=== PATIENT | male | born 1930 | race Caucasian/White ===

== ENCOUNTER 2018-01-11 11:33 | Observation (INO) ==
--- NOTE | 2018-01-11 11:52 | PDOC ---
Upper Extremity Problem HPI - General Chief Complaint: Upper Extremity Problem/Injury Stated Complaint: SWELLING LEFT ARM Date Seen by Provider: 01/11/18 Time Seen by Provider: 11:39 Source: POSITIVE: Patient (daughters and patient) Exam Limitations: POSITIVE: No limitations Nurse's Notes Reviewed & Considered: Yes - History of Present Illness Initial Comments: Patient sent into ED from [place] emergency department for left upper extremity swelling. patient had PICC line placed in left arm 6 days ago for IV antibiotic treatment. Patient reports pain in the arm and redness with the swelling since yesterday. Denies fevers. Denies CP. Denies SOB. Denies cough. - Patient Home Medications Home Medications: Home Medications Aspirin 81 mg PO DAILY tab 08/09/15 Atorvastatin Calcium 10 mg PO DAILY tab 08/09/15 Lisinopril 10 mg PO DAILY tab 08/09/15 Multivit-Min/FA/Lutein/Zeaxant [Icaps Mv Tablet] 1 tab PO BID tab 08/09/15 Budesonide/Formoterol Fumarate [SYMBICORT] 1 mcg INH BID 08/14/17 Gabapentin 300 mg PO BID 08/14/17 Omeprazole 20 mg PO DAILY 08/14/17 Furosemide 40 mg PO DAILY 01/11/18 Metoprolol Tartrate 25 mg PO BID 01/11/18 - Patient Allergies Allergies/Adverse Reactions: Allergies 3 Allergy/AdvReac Type Severity Reaction Status Date / Time Penicillins Allergy Intermediate HIVES Verified 12/30/17 11:57 Past Medical History - heen HEENT History: Macular Degeneration, Hard of Hearing Additional HEENT History: Dentures but doesn't use them Cardiovascular History: Hypertension, DVTs, Hyperlipidemia Additional Cardiovasular History: 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 PERIPHERAL EDEMA Respiratory History: COPD, Emphysema Gastrointestinal History: GERD Genitourinary History: Denies History Endocrine History: Denies History Musculoskeletal History: Arthritis, Back Pain, Osteoarthritis Prosthesis or Implant: No Neurological History: Denies History Additional Neurological History: PERIPHERAL NEUROPATHY Blood Disorders: Denies History Psychiatric History: Denies History History of Sexually Transmitted Diseases: No Cancer History: Skin History of MDRO: No History of Other Communicable Diseases: (chicken pox) In the Past 12 Months, Have Used or Abuse Any Substance: None Previous Surgical History: Yes Type / Date of Surgery: STENT/ APPY/ CTR/ LIPOMA EXCISED FROM RIGHT elbow/ Cataracts bilat/ Anesthesia Reactions: No Malignant Hyperthermia: No Significant Family History: Cancer, Hypertension ROS - Limitations ROS Limitations: No Limitations Constitution: DENIES: Chills, Fever Cardiovascular: DENIES: Chest Pain Respiratory: DENIES: Cough Non Productive, Cough Productive, Hurts To Breathe, Shortness Of Breath Neurological: REPORTS: Denies Neuro Symptoms Gastrointestinal: REPORTS: Denies GI Symptoms Endocrine: REPORTS: Denies Symptoms Musculoskeletal: REPORTS: Other (LUE pain and swelling) Genitourinary: REPORTS: Denies Symptoms ENT: REPORTS: Denies Symptoms Skin: REPORTS: Excessive Bruising. DENIES: Diaphoresis Lympathic: REPORTS: Excessive Bruising Immunologic: POSITIVE: Denies Symptoms Upper Extremity Problem Exam - General Appearance General Appearance: POSITIVE: Alert, Cooperative, Mild Distress - Upper Extremity Upper Extremity: POSITIVE: Normal ROM, Tenderness (Swelling of LUE with LUE PICC In place. Moderate eccymosis of LUE. Some associated errythema. No exudates.), Swelling Vascular: POSITIVE: Full Pulses, Equal Pulses - Skin Skin: POSITIVE: Warm (multiple areas of eccymosis), Erythema - Neuro / Psych Peripheral Neuro Exam: POSITIVE: Sensation Normal, Motor Normal Central Neuro Exam: POSITIVE: Oriented to Person, Oriented to Place, Oriented to Time, Normal Speech, Normal Cognition, Appropriate Mood, Appropriate Affect - HEENT HEENT: POSITIVE: Head Inspection Nml, Eyes Inspection Nml, Oral/Dental Inspect. Nml, Pharynx Inspect. Nml, PERRL, EOMI - Neck/Back Neck / Back: POSITIVE: Normal Inspection - Respiratory / CVS Respiratory / CVS: POSITIVE: No Respiratory Distress Peripheral Pulses: Radial (R): 2+, Radial (L): 2+ - Abdomen Abdomen: Soft: (All Quadrants), Normal Bowel Sounds: (All Quadrants), No Guarding: (All Quadrants), No Rebound: (All Quadrants) Upper Ext Problem Progress - Results Reviewed by me Xrays/CTs/US Reviewed by me: Yes Discussed with Radiologist: Yes Radiology Findings: Left basilic vein DVT associated with LUE PICC line Lab Results Reviewed by Me: Yes CBC and BMP: 01/11/18 12:10 01/11/18 12:10 Lab Results:: Laboratory Results 3 01/11/18 01/11/18 01/11/18 12:10 12:10 12:10 WBC 10.65 RBC 4.62 L Hgb 16.0 Hct 46.8 MCV 101.3 H MCH 34.6 H MCHC 34.2 RDW Std Deviation 54.1 H RDW Coeff of Soraya 14.7 H Plt Count 145 MPV 10.7 Immature Gran % (Auto) 0.3 Neut % (Auto) 72.8 Lymph % (Auto) 18.9 [place] % (Auto) 4.9 L Eos % (Auto) 2.8 Baso % (Auto) 0.3 Immature Gran # (Auto) 0.03 Neut # (Auto) 7.76 Lymph # (Auto) 2.01 [place] # (Auto) 0.52 Eos # (Auto) 0.30 Baso # (Auto) 0.03 WBC Morphology Comment Normal morphology Plt Morphology Comment Normal morphology RBC Morph Comment Normal morphology PT 10.0 INR 0.97 APTT 30.1 Sodium 142 Potassium 4.5 Chloride 109 Carbon Dioxide 26 Anion Gap 7 BUN 17 Creatinine 1.3 BUN/Creatinine Ratio 13.07 Glucose 96 Calculated Osmolality 295.0 H Calcium 9.1 - Patient's Progress Status: POSITIVE: Unchanged MDM / ED Course: Patient presents to the emergency department with left upper extremity swelling and associated PICC line. Obtained ultrasound of left upper extremity which shows partially occlusive DVT of left basilic vein. This is likely from the patient's PICC line. I subsequently discussed the case with Dr. Adames of orthopedics and he requests that the patient get IV antibiotics for another week yet. The patient is currently receiving IV daptomycin via the PICC line. I further discussed the case with Dr. Le of the hospitalist service who will accept the patient for admission to the hospital for further IV antibiotic therapy and treatment of his left upper extremity DVT. Patient was given 1mg/ kg subcutaneous Lovenox here in the emergency department. He will be started on further anticoagulant therapy upon admission. All results were discussed in length in detail with the patient and his family who accompanied him today. They express understanding of results including labs and ultrasound. And they were in agreement with plan of care. Patient was subsequently admitted to the hospitalist service in stable and unchanged condition. - Consult Consult (If Yes, Name of Consulting MD & Time Called): Yes (Dr. Adames) Consulting MD will see pt:: POSITIVE: [facility] Admit, Other (Recommended discussion of case with Hospitalist, Dr. Le. Case discussed with Dr. Le. He requested peripheral line be placed. He does not want coumadin given at this time. Will possibly admit patient for further IV antibiotics and anticoagulant therapy.) Counseled: POSITIVE: Patient, Family Patient Care Time - Estimated PCT Patient Care Time (In Minutes): 70 Vital Signs - VS Reviewed Vital Signs Reviewed: Yes Discharge Clinical Impression: Deep venous thrombosis, Left upper arm pain Discharge Disposition: Admit to Inpatient Condition: Stable Follow Up With: ASHLEY GEORGE [Primary Care Provider] - Care Transferred To: Dr. Le Date Decision to Admit to Inpatient: 01/11/18 Time Decision to Admit to Inpatient: 14:23
[2018-01-11] MEDS ORDERED: HEPARIN 500 UNIT/5 ML SYRINGE FOR CENTRAL LINE IVP ONE (12:00)
[2018-01-11 12:13] LABS: BASOPHILS # (AUTO) 0.03 10*3/UL; BASOPHILS % (AUTO) 0.3 % (0-1); EOSINOPHILS % (AUTO) 2.8 % (0-8); Hematocrit [HCT] 46.8 % (42.0-52.0); LYMPHOCYTES # (AUTO) 2.01 10*3/uL; MEAN CORPUSCULAR HEMOGLOBIN 34.6 PG (27-31); MEAN CORPUSCULAR HGB CONC 34.2 g/dL (33-37); MEAN CORPUSCULAR VOLUME 101.3 FL (80-90); MEAN PLATELET VOLUME 10.7 FL (7.4-12.2); MONOCYTES # (AUTO) 0.52 10*3/UL (0.3-0.8); MONOCYTES % (AUTO) 4.9 % (5-15); NEUTROPHILS # (AUTO) 7.76 10*3/UL; NEUTROPHILS % (AUTO) 72.8 % (50-80); RED BLOOD COUNT 4.62 10^6/uL (4.70-6.10)
[2018-01-11 12:19] LABS: PLATELET MORPHOLOGY COMMENT NORMAL MORPHOLOGY (NORM); RBC MORPHOLOGY COMMENT NORMAL MORPHOLOGY (NORM); WBC MORPHOLOGY COMMENT NORMAL MORPHOLOGY (NORM)
[2018-01-11 12:22] LABS: BLOOD UREA NITROGEN 17 mg/dL (7-22); BUN/CREATININE RATIO 13.07 (6-20)
--- NOTE | 2018-01-11 13:32 | DI ---
US Up/Low Ext Veins U/L or Ltd 01/11/2018 11:50 AM History: [facility] DI ^left arm swelling ^left upper extremity Comparison: Ultrasound-guided venous access 01/05/2018. Procedure: Left upper extremity mendoza scale and color Doppler ultrasound. Findings: A PICC line extends from the mid brachial vein centrally. There is normal flow, compressibi lity (when able), and respiratory variation from the level of the jugular vein through the subclavian and axillary veins. There is incompletely occlusive thrombus in the mid and proximal brachial vein. The distal brachial vein is patent with normal flow and compressibility without attenuated respirator y variation. The superficial veins are patent with normal flow, compressibility, and respiratory vari ation. Impression: A PICC line extends from the mid brachial vein centrally with incompletely occlusive deep vein thrombosis of the mid and proximal brachial vein. These findings were discussed telephonically with Dr. Sellers of the Emergency Department at 1330 h rs on the day of the exam.
[2018-01-11] MEDS ORDERED: ENOXAPARIN SODIUM 120 MG/0.8 ML SYRINGE SUBCUT ONE (14:02)
[2018-01-11] MEDS ORDERED: ACETAMINOPHEN 325 MG TABLET PO PRN (15:33)
--- NOTE | 2018-01-11 15:41 | PDOC ---
HPI - History of Present Illness Date of Service: 01/11/18 Time of Service: 15:00 Chief Complaint: Left arm swelling and pain that started last night. History of Present Illness: This is a 87 years old male with medical history significant for history of hypertension, hypercholesterolemia, history of previous stent insertion and history of right elbow bursitis back in July of this year who needed I&D and then had delayed closure. Then he developed A sinus tract at the elbow 2 months after that he was treated with antibiotics and then he needed surgery and was done a week ago by Dr. Adames. Dr. Adames did speak with infectious disease as he was consented about possible osteomyelitis and he was put on daptomycin supposedly for 2 weeks and then switched to Keflex. He was getting his daptomycin infusion in [place]. They could not withdraw blood on Thursday. Last time he had daptomycin was yesterday. He came in because of swelling and pain that developed in the left arm. In the ER he had an ultrasound which showed upper extremity DVT in the brachial vein. And patient was admitted for observation. He think the swelling is somewhat less compared to earlier on the pain is also less. Past Medical History Medical History: 1. History of coronary artery disease with previous 2 stents 12 years ago. 2. Hypertension. 3. Hypercholesterolemia. 4. Macular degeneration. 5. History of bursitis back in July of this year Surgical History: 1. I&D of bursitis secondary to staph infection back in July of this year. With delayed closure. 2. Recent surgery on right elbow for a sinus tract that developed 2 months after the first surgery. 3. Appendectomy. 4. Carpal tunnel release Family History: Reviewed an Not Pertinent Past Social History: Lives in [place], smokes 1 pack a day since age 14, doesn't drink, no drugs. Tobacco Use: Current Every Day Smoker In the Past 12 Months, Have Used or Abuse Any of the Following Substance: None Alcohol Use: None Medication / Allergies Home Medications: Home Medications 3 Medication Instructions Recorded Confirmed Type Aspirin 81 mg PO DAILY tab 08/09/15 01/11/18 History Atorvastatin Calcium 10 mg PO DAILY tab 08/09/15 01/11/18 History Lisinopril 10 mg PO DAILY tab 08/09/15 01/11/18 History Multivit-Min/FA/Lutein/Zeaxant 1 tab PO BID tab 08/09/15 01/11/18 History [Icaps Mv Tablet] Budesonide/Formoterol Fumarate 1 mcg INH BID 08/14/17 01/11/18 History [SYMBICORT] Gabapentin 300 mg PO BID 08/14/17 01/11/18 History Omeprazole 20 mg PO DAILY 08/14/17 01/11/18 History Furosemide 40 mg PO DAILY 01/11/18 01/11/18 History Metoprolol Tartrate 25 mg PO BID 01/11/18 01/11/18 History Allergies/Adverse Reactions: Allergies 3 Allergy/AdvReac Type Severity Reaction Status Date / Time Penicillins Allergy Intermediate HIVES Verified 01/11/18 15:12 Review of Systems - Review of Systems All Systems: Reviewed & No Additional Complaints Except as Stated Exam - Vitals Vital Signs: Vital Signs Temperature 98.1 F Temperature Source Temporal Artery Scan Pulse Rate [Pulse Oximeter 73 Right] Respiratory Rate 23 Blood Pressure [Left Arm] 164/99 Pulse Ox 86 Oxygen Delivery Method Room Air Height 6 ft 1 in Weight 262 lb 3.2 oz - General General Appearance: No Acute Distress, Cooperative - Head Head Exam: Normal Inspection - Eye Eye Exam: POSITIVE: Normal Appearance - ENT ENT Exam: POSITIVE: Normal Exam - Neck Neck Exam: Normal Inspection - Respiratory Additional Respiratory Exam Details: Decreased air entry otherwise clear - Cardiovascular Cardiovascular Exam: POSITIVE: RRR - GI/Abdominal GI/Abdominal Exam: POSITIVE: Normal Bowel Sounds, Non Tender, Non Distended, Soft, No Organomegaly - Rectal Rectal Exam: POSITIVE: Deferred - External Exam: POSITIVE: Deferred Exam: POSITIVE: Deferred - Extremities Additional Extremities Exam Details: Bilateral leg edema noted. In addition there is swelling in the left arm. Right arm in a sling. dressing applied to the right elbow. - Back Back Exam: POSITIVE: Normal Inspection - Neurological Neurological Exam: POSITIVE: Alert, Oriented x 3, CN II-XII Intact, No Facial Droop, Speech Intact / Clear - Psychiatric Psychiatric Exam: POSITIVE: Normal Affect Results - Labs CBC and BMP: 01/11/18 12:10 01/11/18 12:10 - Imaging Status: Report Reviewed by Me (US PICC line extends from the mid brachial vein centrally with incompletely occlusive deep vein thrombosis of the mid and proximal brachial vein.) Assessment and Plan - Patient Problems (1) Deep venous thrombosis Current Visit: Yes Status: Acute Comment: I discussed with infectious disease we can switched him to by mouth medications so will stop the daptomycin. I think will give him another dose of Lovenox and then will DC the PICC line tomorrow. Will put him on Lovenox for now. Depending on how things look tomorrow then will decide about what anticoagulant to continue after that. Code(s): I82.409 - Acute embolism and thrombosis of unspecified deep veins of unspecified lower extremity (2) History of coronary artery disease Current Visit: Yes Status: Acute Comment: Continue ELPIDIO inhibitor, metoprolol and aspirin. Code(s): Z86.79 - Personal history of other diseases of the circulatory system (3) Leg edema Current Visit: Yes Status: Acute Comment: He has edema in both legs he is supposed to be on furosemide but he's not taking it last time he took it may be a week or 2 weeks ago he said we'll put him back on it. Code(s): R60.0 - Localized edema (4) Hypercholesterolemia Current Visit: Yes Status: Acute Comment: Continue Lipitor Code(s): E78.00 - Pure hypercholesterolemia, unspecified
[2018-01-11] MEDS ORDERED: DOCUSATE 100 MG CAPSULE PO PRN (15:59)
[2018-01-11] MEDS ORDERED: LIDOCAINE W/ SODIUM BICARB 0.5 ML SYR SUBD PRN (15:59)
[2018-01-11] MEDS ORDERED: ONDANSETRON 4 MG/2 ML VIAL IVP PRN (15:59)
[2018-01-11] MEDS ORDERED: CALCIUM CARBONATE 500 MG (TUMS) CHEWABLE TABLET PO PRN (15:59)
[2018-01-11] MEDS ORDERED: FORMOTEROL FUMARATE INH SCH (19:00)
[2018-01-11] MEDS ORDERED: BUDESONIDE INH SCH (19:00)
[2018-01-11] MEDS: DOXYCYCLINE HYCLATE 100 MG CAPSULE PO SCH (21:00)
[2018-01-11] MEDS: Metoprolol TARTRATE Tab 50 MG TAB PO SCH (21:00)
[2018-01-11] MEDS: GABAPENTIN 300 MG CAPSULE PO SCH (21:00)
[2018-01-11] MEDS: NICOTINE 21 MG /DAY PATCH TRANSDERM SCH (21:11)
[2018-01-12] MEDS ORDERED: ENOXAPARIN SODIUM 120 MG/0.8 ML SYRINGE SUBCUT SCH (02:00)
[2018-01-12 06:40] VITALS: BP 128/77; TEMP 97.4; O2SAT 90
[2018-01-12] MEDS ORDERED: FORMOTEROL FUMARATE INH SCH (07:00)
[2018-01-12] MEDS ORDERED: BUDESONIDE INH SCH (07:00)
[2018-01-12 08:03] VITALS: RESP 20
[2018-01-12] MEDS: GABAPENTIN 300 MG CAPSULE PO SCH (08:52)
[2018-01-12] MEDS: Metoprolol TARTRATE Tab 50 MG TAB PO SCH (08:52)
[2018-01-12] MEDS: DOXYCYCLINE HYCLATE 100 MG CAPSULE PO SCH (08:53)
[2018-01-12] MEDS: NICOTINE 21 MG /DAY PATCH TRANSDERM SCH (08:54)
[2018-01-12] MEDS ORDERED: Multivitamin Tab 1 TAB PO SCH (09:00)
[2018-01-12] MEDS ORDERED: ASPIRIN 81 MG (BABY) CHEWABLE TABLET PO SCH (09:00)
[2018-01-12] MEDS ORDERED: LISINOPRIL 10 MG TABLET PO SCH (09:00)
[2018-01-12] MEDS ORDERED: OMEPRAZOLE 20 MG CAPSULE PO SCH (09:00)
[2018-01-12] MEDS ORDERED: FUROSEMIDE 40 MG TABLET PO SCH (09:00)
[2018-01-12] MEDS ORDERED: Rivaroxaban Tab 10 MG TAB PO ONE (10:19)
--- NOTE | 2018-01-12 10:28 | DCSUMMARY ---
Hospitalization Summary Admit Date: 01/11/2018 Discharge Date: 01/12/18 Primary Diagnosis:: left upper extremity DVT, provoked Hospital Course: This very pleasant 87-year-old male who has had some issues with a right olecranon bursitis and infection there. He had a sinus tract that was recently closed. He has been on antibiotics for this and had a PICC line for IV antibiotics. He developed significant swelling in the left upper extremity and came in for evaluation was found to have a left basilic vein DVT, acute, provoked. Patient was admitted, placed on Lovenox, and it was determined, by my partner Dr. Le, and discussion with infectious disease, that the patient could go to oral antibiotics of doxycycline for the next week and then discontinue antibiotics. There was no evidence of any infection or osteomyelitis with the sinus tract. The patient and I spoke in depth regarding Coumadin versus Xarelto versus Eliquis, including all risks and benefits, risks being bleeding complications and possible pitfalls of not being able to reverse bleeding with antidotes, and benefits of treatment of blood clot, lack of drug interactions, and ease of therapy in terms of lab monitoring. The patient opted to go for Xarelto. I think this makes the most sense given his age and borderline kidney function. He has no complains of chest pain, shortness breath, nausea or vomiting today. He states that his left arm pain has significantly reduced. He would like to go home. Assessment and Plan: 1. As per discharge assessments noted 2. Disposition: Patient is discharged home. 3. Condition on discharge, stable and improved. 4. Diet: regular diet 5. Activities: resume normal activities and as per restrictions via Dr. Adames for right upper extremity 6. Follow-Up: 1. Dr. Blood in one week 2. Dr. Adames at next available in [place] 7. Medications at the Time of Discharge: Home Medications 3 Medication Instructions Recorded Confirmed Type Aspirin 81 mg PO DAILY tab 08/09/15 01/11/18 History Atorvastatin Calcium 10 mg PO DAILY tab 08/09/15 01/11/18 History Lisinopril 10 mg PO DAILY tab 08/09/15 01/11/18 History Multivit-Min/FA/Lutein/Zeaxant 1 tab PO BID tab 08/09/15 01/11/18 History [Icaps Mv Tablet] Budesonide/Formoterol Fumarate 1 mcg INH BID 08/14/17 01/11/18 History [SYMBICORT] Gabapentin 300 mg PO BID 08/14/17 01/11/18 History Omeprazole 20 mg PO DAILY 08/14/17 01/11/18 History Furosemide 40 mg PO DAILY 01/11/18 01/11/18 History Metoprolol Tartrate 25 mg PO BID 01/11/18 01/11/18 History Doxycycline Hyclate [Vibramycin] 100 mg PO BID #14 cap 01/12/18 Rx Rivaroxaban [Xarelto] 15 mg PO BID #42 tab 01/12/18 Rx Rivaroxaban [Xarelto] 20 mg PO DAILY #90 tab 01/12/18 Rx Exam - Vitals Vital Signs: Vital Signs Temperature 97.4 F Temperature Source Temporal Artery Scan Pulse Rate [Pulse Oximeter] 65 Pulse Rate [Pulse Oximeter 73 Right] Pulse Rate 68 Respiratory Rate 20 Blood Pressure [Left Arm] 128/77 Blood Pressure 169/105 Pulse Ox 90 Oxygen Flow Rate 1 Oxygen Delivery Method Room Air Height 6 ft 1 in Weight 262 lb 3.2 oz - General General Appearance: No Acute Distress, Cooperative - Head Head Exam: Normal Inspection, Normocephalic, Atraumatic - Eye Eye Exam: POSITIVE: No Scleral Icterus - ENT ENT Exam: POSITIVE: Mucous Membranes Moist - Respiratory Respiratory Exam: POSITIVE: Clear to Auscultation - Bilaterally, Breathing Non Labored - Cardiovascular Cardiovascular Exam: POSITIVE: RRR, No Murmur, No Clicks, No Gallops, No Rubs, No JVD - GI/Abdominal GI/Abdominal Exam: POSITIVE: Normal Bowel Sounds, Non Tender, Non Distended, Soft - Extremities Extremities Exam: POSITIVE: +2 Edema (In the lower extremities bilaterally. 3+ edema in the left upper extremity but good radial pulses, no evidence of vascular compromise.) - Neurological Neurological Exam: POSITIVE: Alert, Oriented x 3, No Facial Droop, Speech Intact / Clear, Moves All Extremities Equally - Psychiatric Psychiatric Exam: POSITIVE: Normal Affect, Normal Mood Data Peritnent Studies: Laboratory Results 01/11/18 01/11/18 01/11/18 Range/Units 12:10 12:10 12:10 WBC 10.65 (4.8-10.8) 10^3/uL RBC 4.62 L (4.70-6.10) 10^6/uL Hgb 16.0 (14.0-18.0) g/dL Hct 46.8 (42.0-52.0) % MCV 101.3 H (80-90) FL MCH 34.6 H (27-31) PG MCHC 34.2 (33-37) g/dL RDW Std Deviation 54.1 H (39-50) fL RDW Coeff of [place] 14.7 H (11.5-14.5) % Plt Count 145 (140-350) 10*3/uL MPV 10.7 (7.4-12.2) FL Immature Gran % (Auto) 0.3 (0-5) % Neut % (Auto) 72.8 (50-80) % Lymph % (Auto) 18.9 (10-50) % [place] % (Auto) 4.9 L (5-15) % Eos % (Auto) 2.8 (0-8) % Baso % (Auto) 0.3 (0-1) % Immature Gran # (Auto) 0.03 10*3/UL Neut # (Auto) 7.76 10*3/UL Lymph # (Auto) 2.01 10*3/uL [place] # (Auto) 0.52 (0.3-0.8) 10*3/UL Eos # (Auto) 0.30 10*3/UL Baso # (Auto) 0.03 10*3/UL WBC Morphology Comment Normal morphology (NORM) Plt Morphology Comment Normal morphology (NORM) RBC Morph Comment Normal morphology (NORM) PT 10.0 (9.7-11.4) secs INR 0.97 (0.00-5.90) N/A APTT 30.1 (22.6-36.2) SECS Sodium 142 (135-145) meq/L Potassium 4.5 (3.8-5.2) meq/L Chloride 109 (98-112) meq/L Carbon Dioxide 26 (23-33) meq/L Anion Gap 7 (5-20) BUN 17 (7-22) mg/dL Creatinine 1.3 (0.70-1.50) mg/dL BUN/Creatinine Ratio 13.07 (6-20) Glucose 96 (78-110) mg/dL Calculated Osmolality 295.0 H (267-292) mOsm/kg Calcium 9.1 (8.7-10.7) mg/dL Procedures: [address] [facility] [place] [address] PH: DD: [phone] FAX: [phone] ~DIAGNOSTIC IMAGING REPORT~ Patient: LY HERNANDEZ : 1930 Sex: M Age: 87 Exam Name: US Up/Low Ext Veins U/L or Ltd Exam Date: 01/11/18 Report # : [id number] CPT Code: 14977 EMR/MR #: [id number] Ordering: Juice Sellers Admiting: Primary: ASHLEY GEORGE MD. Attending: Signed US Up/Low Ext Veins U/L or Ltd 01/11/2018 11:50 AM History: [facility] DI ^left arm swelling ^left upper extremity Comparison: Ultrasound-guided venous access 01/05/2018. Procedure: Left upper extremity mendoza scale and color Doppler ultrasound. Findings: A PICC line extends from the mid brachial vein centrally. There is normal flow, compressibility (when able), and respiratory variation from the level of the jugular vein through the subclavian and axillary veins. There is incompletely occlusive thrombus in the mid and proximal brachial vein. The distal brachial vein is patent with normal flow and compressibility without attenuated respiratory variation. The superficial veins are patent with normal flow, compressibility, and respiratory variation. Impression: A PICC line extends from the mid brachial vein centrally with incompletely occlusive deep vein thrombosis of the mid and proximal brachial vein. These findings were discussed telephonically with Dr. Sellers of the Emergency Department at 1330 hrs on the day of the exam. Dictated By: 01/11/18 1303 CATHERINE GRIMES MD. Signed By: 01/11/18 1332 CATHERINE GRIMES MD. Patient Problems - Patient Problem List (1) Deep venous thrombosis Current Visit: Yes Status: Acute Code(s): I82.409 - Acute embolism and thrombosis of unspecified deep veins of unspecified lower extremity Qualifiers: DVT location: upper extremity Affected thrombotic vein of extremity: brachial Chronicity: acute Laterality: left Qualified Code(s): I82.622 - Acute embolism and thrombosis of deep veins of left upper extremity Category: Medical (2) History of coronary artery disease Current Visit: Yes Status: Acute Code(s): Z86.79 - Personal history of other diseases of the circulatory system Category: Medical (3) Leg edema Current Visit: Yes Status: Acute Code(s): R60.0 - Localized edema Category : Medical (4) Hypercholesterolemia Current Visit: Yes Status: Acute Code(s): E78.00 - Pure hypercholesterolemia , unspecified Category: Medical (5) Olecranon bursitis of right elbow Current Visit: Yes Status: Acute Code(s): M70.21 - Olecranon bursitis, right elbow Category: Medical
[2018-01-12] MEDS ORDERED: ATORVASTATIN 10 MG TABLET PO SCH (21:00)
== END 2018-01-12 11:05 | disposition home or self-care (01) ==
LOC: MED/SURG 11:33 → ER 11:33
PROVIDERS: ADMIT Internal Medicine; ATTEND Internal Medicine

== ENCOUNTER 2018-07-09 09:10 | Inpatient (IN) ==
[2018-07-09] MEDS ORDERED: MORPHINE SULFATE 2 MG/1 ML IVP ONE (09:14)
[2018-07-09] MEDS ORDERED: FUROSEMIDE 10 MG/1 ML - 4 ML IVP ONE (09:14)
[2018-07-09] MEDS ORDERED: Sodium Chloride 0.9% 1,000 ML PRIMARY IV ONE (09:14)
[2018-07-09] MEDS ORDERED: ONDANSETRON 4 MG/2 ML VIAL IVP ONE (09:14)
[2018-07-09] MEDS ORDERED: IPRATROPIUM/ALBUTEROL SULFATE 3 ML NEB NEB ONE (09:15)
--- NOTE | 2018-07-09 09:17 | EKG ---
[address] [place] [address] Measurements Intervals [place] Rate: 83 P: -9 ME: 205 QRS: -44 QRSD: 163 T: -1 QT: 414 QTc: 454 Interpretive Statements SINUS RHYTHM WITH FREQUENT VENTRICULAR PREMATURE COMPLEXES WITH OCCASIONAL SUPRAVENTRICULAR PREMATURE COMPLEXES POSSIBLE LEFT ATRIAL ENLARGEMENT [-0.1mV P WAVE IN V1/V2] RIGHT BUNDLE BRANCH BLOCK [120+ ms QRS DURATION, UPRIGHT V1, 40+ ms S IN I/aVL/V4/V5/V6] POSSIBLE SEPTAL MYOCARDIAL INFARCTION [30 ms Q WAVE IN V1/V2], PROBABLY OLD INFERIOR MYOCARDIAL INFARCTION [40+ ms Q WAVE AND/OR ST/T ABNORMALITY IN II/aVF], OF INDETERMINATE AGE No previous ECG available for comparison Electronically Signed On 07-09-18 11:07:31 MDT by Gus Flood MD [email or web address]
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
[2018-07-09 09:30] LABS: BASOPHILS # (AUTO) 0.03 10*3/UL; BASOPHILS % (AUTO) 0.2 % (0-1); EOSINOPHILS # (AUTO) 0.25 10*3/UL; EOSINOPHILS % (AUTO) 1.6 % (0-8); Hematocrit [HCT] 47.7 % (42.0-52.0); LYMPHOCYTES # (AUTO) 2.45 10*3/uL; MEAN CORPUSCULAR HEMOGLOBIN 33.5 PG (27-31); MEAN CORPUSCULAR HGB CONC 33.5 g/dL (33-37); MEAN PLATELET VOLUME 11.5 FL (7.4-12.2); MONOCYTES # (AUTO) 0.89 10*3/UL (0.3-0.8); MONOCYTES % (AUTO) 5.8 % (5-15); NEUTROPHILS # (AUTO) 11.55 10*3/UL; RED BLOOD COUNT 4.77 10^6/uL (4.70-6.10)
[2018-07-09 09:31] LABS: PLATELET MORPHOLOGY COMMENT NORMAL MORPHOLOGY (NORM); RBC MORPHOLOGY COMMENT NORMAL MORPHOLOGY (NORM); WBC MORPHOLOGY COMMENT NORMAL MORPHOLOGY (NORM)
[2018-07-09 09:32] LABS: VENOUS PCO2 34.5 mmHg (45-55); VENOUS PH 7.317 (7.32-7.42)
[2018-07-09 09:47] LABS: BLOOD UREA NITROGEN 22 mg/dL (7-22); BUN/CREATININE RATIO 15.71 (6-20); SERUM ALBUMIN 3.7 g/dL (3.5-4.8)
--- NOTE | 2018-07-09 10:59 | DI ---
CT CTA Chest Non-Coronary WWO 07/09/2018 9:26 AM History[place] [facility] [place] Comparison: None. Procedure: CT angiography of the pulmonary arteries was performed after the administration of 65 mL o f Ultravist 370 intravenous contrast. Findings: There is normal opacification of the pulmonary arteries with no evidence of filling defect. Evaluation of the lungs demonstrates diffuse subpleural groundglass attenuation and reticular opacit ies, most conspicuous in the lower lobes where there is mild bilateral bronchiectasis. No honeycombin g is present. There is no dense consolidation, pneumothorax, or pleural effusion. No suspicious pulmo nary nodules are noted. The airways are patent with no endobronchial lesion. There are shotty mediastinal and right hilar lymph nodes. The aorta and branch vessels demonstrate no rmal course and caliber. The right and left main pulmonary arteries are dilated. Heart size is within normal limits with no pericardial effusion. The thyroid exhibits normal CT morphology. The visualized upper abdominal structures are unremarkable. The osseous structures are notable for severe acromioclavicular and glenohumeral joint osteoarthritis . There is no evidence of acute or healing rib fractures. Impression: 1. No main or segmental pulmonary embolism. 2. Constellation of findings concerning for interstitial lung disease with a nonspecific pattern favo ring nonspecific interstitial pneumonia. 3. The main pulmonary artery is dilated, a finding associated with pulmonary artery hypertension.
[2018-07-09] MEDS ORDERED: cefTRIAXone Inj 2 GM in Sodium Chloride 0.9% 100 ML IV ONE (11:15)
[2018-07-09 11:36] LABS: BILIRUBIN,URINE NEGATIVE (NEG); CLARITY,URINE CLEAR (CLEAR); COLOR,URINE YELLOW (Y); GLUCOSE, URINE (UA) NEGATIVE (NEG); OCCULT BLOOD,URINE NEGATIVE (NEG); PROTEIN,URINE NEGATIVE (NEG); UROBILINOGEN,URINE 0.2 EU/dL (0.2)
--- NOTE | 2018-07-09 11:39 | DI ---
US Veins, UE/LE Bilat 07/09/2018 9:26 AM History: [facility] – [place] DI ^swelling BLE/SOB Comparison: None. Procedure: Bilateral lower extremity Doppler ultrasound. Findings: There is normal flow, compressibility, and respiratory variation from the level of the comm on femoral vein to the popliteal vein bilaterally. There is normal augmentation of flow. Additionally , the deep veins below the knee that could be imaged were evaluated without evidence of thrombosis, t lynsey sensitivity is much lower in the evaluation of vessels below the knee. Impression: No sonographic evidence of deep vein thrombosis.
--- NOTE | 2018-07-09 11:41 | DI ---
US Veins, UE/LE [employer] 07/09/2018 9:26 AM History: [facility] [place] DI ^Swelling LUE/sob Comparison: None. Procedure: Left upper extremity mendoza scale and color Doppler ultrasound. Findings: There is normal flow, compressibility (when able), and respiratory variation from the level of the jugular vein through the subclavian, axillary, and brachial veins of the left upper extremity . There is normal venous augmentation. The superficial veins, to include the basilic and cephalic vei ns, are patent with normal flow, compressibility, and respiratory variation. Impression: No sonographic evidence of deep vein thrombosis.
[2018-07-09] MEDS ORDERED: LORazepam 2 MG/1 ML VIAL IVP ONE (11:51)
[2018-07-09 12:04] LABS: URINE SAMPLE TYPE CLEAN CATCH URINE
[2018-07-09] MEDS ORDERED: ONDANSETRON 4 MG/2 ML VIAL IVP PRN (14:19)
[2018-07-09] MEDS ORDERED: LIDOCAINE W/ SODIUM BICARB 0.5 ML SYR SUBD PRN (14:19)
[2018-07-09] MEDS ORDERED: ALBUTEROL SULFATE 2.5 MG/3 ML NEB PRN (14:19)
[2018-07-09] MEDS: IPRATROPIUM/ALBUTEROL SULFATE 3 ML NEB NEB SCH ×2 (15:33→20:04)
[2018-07-09] MEDS ORDERED: FUROSEMIDE 40 MG TABLET PO ONE (16:21)
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
[2018-07-09] MEDS: Metoprolol TARTRATE Tab 50 MG TAB PO SCH (21:21)
[2018-07-10 05:21] LABS: BASOPHILS # (AUTO) 0.02 10*3/UL; BASOPHILS % (AUTO) 0.2 % (0-1); EOSINOPHILS % (AUTO) 2.4 % (0-8); Hemoglobin [HGB] 14.2 g/dL (14.0-18.0); LYMPHOCYTES # (AUTO) 2.02 10*3/uL; MEAN CORPUSCULAR HEMOGLOBIN 33.5 PG (27-31); MEAN CORPUSCULAR VOLUME 101.4 FL (80-90); MEAN PLATELET VOLUME 11.2 FL (7.4-12.2); MONOCYTES # (AUTO) 0.91 10*3/UL (0.3-0.8); MONOCYTES % (AUTO) 7.2 % (5-15); NEUTROPHILS # (AUTO) 9.33 10*3/UL; RED BLOOD COUNT 4.24 10^6/uL (4.70-6.10)
[2018-07-10 05:32] LABS: PLATELET MORPHOLOGY COMMENT NORMAL MORPHOLOGY (NORM); RBC MORPHOLOGY COMMENT NORMAL MORPHOLOGY (NORM); WBC MORPHOLOGY COMMENT NORMAL MORPHOLOGY (NORM)
[2018-07-10 05:36] LABS: BLOOD UREA NITROGEN 34 mg/dL (7-22); BUN/CREATININE RATIO 18.88 (6-20)
[2018-07-10] MEDS ORDERED: FUROSEMIDE 40 MG TABLET PO SCH (07:00)
[2018-07-10] MEDS: IPRATROPIUM/ALBUTEROL SULFATE 3 ML NEB NEB SCH ×4 (07:06→19:44)
[2018-07-10] MEDS ORDERED: LISINOPRIL 10 MG TABLET PO SCH (09:00)
[2018-07-10] MEDS ORDERED: predniSONE Tab 20 MG TAB PO SCH (09:00)
[2018-07-10] MEDS ORDERED: LISINOPRIL 20 MG TABLET PO SCH (09:00)
[2018-07-10] MEDS ORDERED: POTASSIUM CHLORIDE 20 MEQ TAB PO SCH (09:00)
[2018-07-10] MEDS: Metoprolol TARTRATE Tab 50 MG TAB PO SCH ×2 (09:15→21:56)
[2018-07-10] MEDS: ATORVASTATIN 10 MG TABLET PO SCH (09:15)
[2018-07-10] MEDS: Multivitamin Tab 1 TAB PO SCH ×2 (09:17→21:56)
[2018-07-10] MEDS: ASPIRIN 81 MG (BABY) CHEWABLE TABLET PO SCH (09:18)
[2018-07-10] MEDS: OMEPRAZOLE 20 MG CAPSULE PO SCH (09:18)
[2018-07-10] MEDS: ENOXAPARIN SODIUM 40 MG/0.4 ML SYRINGE SUBCUT SCH (09:19)
[2018-07-10] MEDS: Sodium Chloride 0.9% 1,000 ML PRIMARY IV SCH (10:53)
--- NOTE | 2018-07-10 11:35 | PDOC(PROG) ---
Date of Service: 07/10/18 Time of Service: 11:32 Interval History: No complaints of chest pain, shortness breath, nausea or vomiting. Left arm still swollen, hot, tender. Still complains of drainage from right elbow which has not changed and is chronic in nature. I do note that there is a culture pending on the right elbow drainage. Urinating well Objective : Data - Labs CBC and BMP: 07/10/18 04:50 07/10/18 04:50 Objective : Exam - General General Appearance: No Acute Distress, Cooperative Additional General Exam Details: Vital Signs - Last Taken Temperature 97 F 07/10/18 09:00 Pulse Rate 69 07/10/18 09:00 Respiratory Rate 20 07/10/18 09:00 Blood Pressure 165/73 07/10/18 09:00 Pulse Ox 92 07/10/18 09:00 - Eye Eye Exam: No Scleral Icterus - ENT ENT Exam: Mucous Membranes Moist - Neck Neck Exam: JVP is not Raised - Respiratory Respiratory Exam: Breathing Non Labored, Coarse Breath Sounds - Cardiovascular Cardiovascular Exam: RRR, No Murmur, No Clicks, No Gallops, No Rubs, No JVD - GI/Abdominal GI/Abdominal Exam: Normal Bowel Sounds, Non Tender, Non Distended, Soft - Extremities Extremities Exam: No Clubbing Present, No Cyanosis Present, +2 Edema - Neurological Neurological Exam: Alert, Oriented x 3, No Facial Droop, Speech Intact / Clear, Moves All Extremities Equally - Integumentary Additional Integumentary Exam Details: Left arm has slightly less edema, tender to touch, red. Right elbow has minimal yellowish colored discharge, very minimal with Band-Aid in place. Assessment and Plan - Patient Problems (1) Left arm cellulitis Current Visit: Yes Status: Acute Code(s): L03.114 - Cellulitis of left upper limb (2) Coronary artery disease Current Visit: Yes Status: Acute Code(s): I25.10 - Atherosclerotic heart disease of [place] coronary artery without angina pectoris Qualifiers: Coronary Disease-Associated Artery/Lesion type: [place] artery [place] vs. transplanted heart: [place] heart Associated angina: without angina Qualified Code(s): I25.10 - Atherosclerotic heart disease of [place] coronary artery without angina pectoris (3) History of DVT (deep vein thrombosis) Current Visit: Yes Status: Acute Code(s): Z86.718 - Personal history of other venous thrombosis and embolism (4) Interstitial pneumonitis Current Visit: Yes Status: Acute Code(s): J84.89 - Other specified interstitial pulmonary diseases (5) Hypercholesterolemia Current Visit: No Status: Acute Code(s): E78.00 - Pure hypercholesterolemia, unspecified (6) Chronic silicosis Current Visit: Yes Status: Acute Code(s): J62.8 - Pneumoconiosis due to other dust containing silica (7) Pulmonary hypertension Current Visit: Yes Status: Acute Code(s): I27.20 - Pulmonary hypertension, unspecified (8) COPD (chronic obstructive pulmonary disease) Current Visit: Yes Status: Acute Code(s): J44.9 - Chronic obstructive pulmonary disease, unspecified Qualifiers: COPD type: emphysema Emphysema type: panlobular Qualified Code(s): J43.1 - Panlobular emphysema - Assessment / Plan Additional Assessment/Plan Details: did not respond well to lasix and ACEI, so stop could also be getting endotoxins if this is Beta hemolytic strep, so add clinda for toxic blocking effects labs in AM not sure what to make of gram stain on right elbow--will see if there is growth, as this chronically drains and the family is not reporting worsened drainage and neither is the patient give fluids today with increase in creatinine.
[2018-07-10] MEDS: Clindamycin 900mg (Premix) 900 MG/50 ML BAG IV SCH ×2 (11:51→18:45)
[2018-07-10] MEDS: cefTRIAXone Inj 2 GM in Sodium Chloride 0.9% 100 ML IV SCH (12:38)
[2018-07-11] MEDS: Sodium Chloride 0.9% 1,000 ML PRIMARY IV SCH ×2 (01:29→09:58)
[2018-07-11] MEDS: Clindamycin 900mg (Premix) 900 MG/50 ML BAG IV SCH ×3 (01:30→18:42)
[2018-07-11 04:30] LABS: BASOPHILS # (AUTO) 0.03 10*3/UL; BASOPHILS % (AUTO) 0.3 % (0-1); EOSINOPHILS # (AUTO) 0.33 10*3/UL; EOSINOPHILS % (AUTO) 3.4 % (0-8); Hematocrit [HCT] 41.9 % (42.0-52.0); Hemoglobin [HGB] 13.8 g/dL (14.0-18.0); LYMPHOCYTES # (AUTO) 1.82 10*3/uL; MEAN CORPUSCULAR HEMOGLOBIN 33.3 PG (27-31); MEAN CORPUSCULAR HGB CONC 32.9 g/dL (33-37); MEAN PLATELET VOLUME 11.2 FL (7.4-12.2); MONOCYTES # (AUTO) 0.86 10*3/UL (0.3-0.8); MONOCYTES % (AUTO) 8.8 % (5-15); NEUTROPHILS % (AUTO) 68.7 % (50-80); RED BLOOD COUNT 4.15 10^6/uL (4.70-6.10)
[2018-07-11 04:35] LABS: PLATELET MORPHOLOGY COMMENT NORMAL MORPHOLOGY (NORM); RBC MORPHOLOGY COMMENT NORMAL MORPHOLOGY (NORM); WBC MORPHOLOGY COMMENT NORMAL MORPHOLOGY (NORM)
[2018-07-11 06:10] LABS: BLOOD UREA NITROGEN 28 mg/dL (7-22)
[2018-07-11] MEDS: IPRATROPIUM/ALBUTEROL SULFATE 3 ML NEB NEB SCH ×4 (07:19→19:01)
[2018-07-11] MEDS: ENOXAPARIN SODIUM 40 MG/0.4 ML SYRINGE SUBCUT SCH (08:14)
[2018-07-11] MEDS: ATORVASTATIN 10 MG TABLET PO SCH (08:15)
[2018-07-11] MEDS: Multivitamin Tab 1 TAB PO SCH ×3 (08:15→20:03)
[2018-07-11] MEDS: ASPIRIN 81 MG (BABY) CHEWABLE TABLET PO SCH (08:15)
[2018-07-11] MEDS: Metoprolol TARTRATE Tab 50 MG TAB PO SCH ×2 (08:15→20:03)
[2018-07-11] MEDS: OMEPRAZOLE 20 MG CAPSULE PO SCH (08:15)
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
[2018-07-11] MEDS: cefTRIAXone Inj 2 GM in Sodium Chloride 0.9% 100 ML IV SCH (12:22)
[2018-07-11] MEDS ORDERED: ASPIRIN 81 MG (BABY) CHEWABLE TABLET PO ONE (20:36)
[2018-07-11] MEDS ORDERED: IBUPROFEN PM PO SCH (21:00)
[2018-07-11] MEDS: [UNRECOGNIZED DRUG - OTHER] PO SCH (21:20)
[2018-07-12] MEDS: Clindamycin 900mg (Premix) 900 MG/50 ML BAG IV SCH ×2 (01:49→11:02)
[2018-07-12 05:03] LABS: BASOPHILS # (AUTO) 0.02 10*3/UL; BASOPHILS % (AUTO) 0.3 % (0-1); EOSINOPHILS # (AUTO) 0.42 10*3/UL; Hematocrit [HCT] 39.9 % (42.0-52.0); Hemoglobin [HGB] 13.4 g/dL (14.0-18.0); LYMPHOCYTES # (AUTO) 1.49 10*3/uL; MEAN CORPUSCULAR HEMOGLOBIN 33.8 PG (27-31); MEAN CORPUSCULAR HGB CONC 33.6 g/dL (33-37); MEAN CORPUSCULAR VOLUME 100.5 FL (80-90); MONOCYTES # (AUTO) 0.72 10*3/UL (0.3-0.8); MONOCYTES % (AUTO) 10.4 % (5-15); NEUTROPHILS # (AUTO) 4.29 10*3/UL; NEUTROPHILS % (AUTO) 61.8 % (50-80); RED BLOOD COUNT 3.97 10^6/uL (4.70-6.10)
[2018-07-12 05:28] LABS: PLATELET MORPHOLOGY COMMENT NORMAL MORPHOLOGY (NORM); RBC MORPHOLOGY COMMENT NORMAL MORPHOLOGY (NORM); WBC MORPHOLOGY COMMENT NORMAL MORPHOLOGY (NORM)
[2018-07-12 05:59] LABS: BLOOD UREA NITROGEN 21 mg/dL (7-22)
[2018-07-12 06:27] VITALS: TEMP 97.1
[2018-07-12] MEDS: IPRATROPIUM/ALBUTEROL SULFATE 3 ML NEB NEB SCH ×2 (07:15→11:23)
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
[2018-07-12] MEDS: ASPIRIN 81 MG (BABY) CHEWABLE TABLET PO SCH (08:33)
[2018-07-12] MEDS: Multivitamin Tab 1 TAB PO SCH (08:33)
[2018-07-12] MEDS: Metoprolol TARTRATE Tab 50 MG TAB PO SCH (08:33)
[2018-07-12] MEDS: [UNRECOGNIZED DRUG - OTHER] PO SCH (08:33)
[2018-07-12] MEDS: cefTRIAXone Inj 2 GM in Sodium Chloride 0.9% 100 ML IV SCH (11:27)
[2018-07-12 11:38] VITALS: BP 136/70; RESP 20; O2SAT 94
[2018-07-12] MEDS ORDERED: OMEPRAZOLE 20 MG CAPSULE PO SCH (21:00)
[2018-07-12] MEDS ORDERED: ATORVASTATIN 10 MG TABLET PO SCH (21:00)
--- NOTE | 2018-07-15 14:02 | DI ---
RIGHT ELBOW, 07/09/2018 9:26 AM: Clinical History: Draining wound of the right elbow. Comparison Study: 12/30/2017. Views: 3 views. Soft Tissues: Soft tissue swelling deep to the subcutaneous fat is present over the olecranon and thi s may represent some fluid in the olecranon bursa. Effusion: No joint effusion present. Joints: Narrowing of the radio-capitellum joint space. Bones: No fracture or dislocation. Reading: No fracture noted. Arthritic changes of the radio-capitellum joint
== END 2018-07-12 12:21 | disposition home or self-care (01) | DRG 603 ==
LOC: ER 09:10 → MED/SURG 13:45
PROVIDERS: ADMIT Family Medicine; ATTEND Family Medicine